=== PATIENT | female | born 1950 | race Two or more races ===

== ENCOUNTER 2019-07-12 13:49 | Emergency (ER) | payer OTHER ==
[~2019-07-12] VITALS: Ht 167.6 cm; Wt 62.6 kg
[2019-07-12 14:02] VITALS: BP 141/82
--- NOTE | 2019-07-12 14:09 | NUR ---
AT BEDSIDE FOR EVAL.
--- NOTE | 2019-07-12 14:18 | NUR ---
Flora lowry in [facility] - 07/12/19 at 1419 by NORAH [employer] SAF[employer] OFFICER AT [facility] FOR EVAL.
--- NOTE | 2019-07-12 14:20 | NUR ---
PIPE STRIPPER AT BEDSIDE FOR XRAY.
--- NOTE | 2019-07-12 15:05 | NUR ---
MEREDITH PHELAN APPLIED BY [employer].
--- NOTE | 2019-07-12 15:16 | NUR ---
Patient discharged to home in stable condition. Written and verbal after care instructions given. Patient verbalizes understanding of instruction.
== END 2019-07-12 15:17 | disposition home or self-care (01) ==
LOC: ER 14:25
DX: S52.592A Other fractures of lower end of left radius, initial encounter for closed fracture (principal); S52.615A Nondisplaced fracture of left ulna styloid process, initial encounter for closed fracture; W01.0XXA Fall on same level from slipping, tripping and stumbling without subsequent striking against object, initial encounter; Y93.01 Activity, walking, marching and hiking; Y92.89 Other specified places as the place of occurrence of the external cause; Y99.8 Other external cause status
CPT/HCPCS: 73110

== ENCOUNTER 2020-01-22 12:26 | Emergency (ER) | payer OTHER ==
[~2020-01-22] VITALS: Ht 154.9 cm; Wt 59.9 kg
--- NOTE | 2020-01-22 12:40 | NUR ---
EXPOSED TO FAMILY +COVID, C/O HEADACHE AND SORETHROAT, - SOB. PATIENT A/OX4, AMBULATORY WITH STEADY GAIT. [employer] SHUCKER OBTAINED. DENIES SOB AT THIS TIME.
[2020-01-22 12:54] VITALS: BP 108/63
--- NOTE | 2020-01-22 13:49 | NUR ---
COVID SWAB SENT. Patient discharged to home in stable condition. Written and verbal after care instructions given. Patient verbalizes understanding of instruction.
== END 2020-01-22 13:50 | disposition home or self-care (01) ==
LOC: ER 12:29
DX: U07.1 COVID-19 (principal); R51.9 Headache, unspecified
CPT/HCPCS: 99283; C9803; U0003